=== PATIENT | female | born 1980 | race Caucasian/White ===

== ENCOUNTER 2016-11-09 17:43 | Emergency (ER) | payer MEDICAID, OTHER ==
[~2016-11-09] VITALS: Ht 172.7 cm; Wt 130.0 kg
[2016-11-09 17:45] VITALS: BP 177/110; PULSE 106; RESP 16; TEMP 97.9; O2SAT 99
[2016-11-09] MEDS ORDERED: methylPREDNISolone SOD SUCC 125 MG/2 ML VIAL IV PUSH ONE (18:30)
[2016-11-09] MEDS ORDERED: diphenhydrAMINE HCL 50 MG/ML VIAL IV PUSH ONE (18:30)
[2016-11-09 19:08] LABS: AUTOMATED NEUTROPHIL # 3.6 TH/MM3 (1.8-7.7); BASOPHIL % 0.8 % (0.0-2.0); EOSINOPHIL # 0.2 TH/MM3 (0-0.4); EOSINOPHIL % 2.6 % (0.0-4.0); HEMATOCRIT 40.3 % (35.0-46.0); HEMO FLAGS DIFF FINAL; LYMPH % 30.2 % (9.0-44.0); LYMPHOCYTE # 1.9 TH/MM3 (1.0-4.8); MEAN CORPUSCULAR HEMOGLOBIN 32.4 PG (27.0-34.0); MEAN CORPUSCULAR HGB CONC 34.9 % (32.0-36.0); MONO % 8.6 % (0.0-8.0); NEUT % 57.8 % (16.0-70.0); PLATELET COUNT 257 TH/MM3 (150-450); RED BLOOD COUNT 4.33 MIL/MM3 (4.00-5.30); RED CELL DISTRIBUTION WIDTH 13.8 % (11.6-17.2); WHITE BLOOD COUNT 6.2 TH/MM3 (4.0-11.0)
[2016-11-09 19:09] VITALS: BP 148/78; PULSE 82; RESP 16; O2SAT 99
[2016-11-09 19:33] LABS: ALT (GPT) 52 U/L (10-53)
[2016-11-09 19:35] LABS: ALKALINE PHOSPHATASE 82 U/L (45-117); ANION GAP 8 MEQ/L (5-15); AST (GOT) 47 U/L (15-37); BICARBONATE 28.1 MEQ/L (21.0-32.0); BLOOD UREA NITROGEN 8 MG/DL (7-18); CHLORIDE 104 MEQ/L (98-107); GLOMERULAR FILTRATION RATE 90 ML/MIN (>89); POTASSIUM 3.7 MEQ/L (3.5-5.1); SODIUM (NA) 140 MEQ/L (136-145); TOTAL BILIRUBIN ADULT 0.5 MG/DL (0.2-1.0)
[2016-11-09] MEDS ORDERED: MEDR4PAK PO (20:02)
[2016-11-09] MEDS ORDERED: TRIAM.1%T TOPICAL (20:02)
--- NOTE | 2016-11-09 20:03 | PD ---
HPI Chief Complaint: Skin Problem Time Seen by Provider: 18:22 Travel History International Travel<30 days: No Contact w/Intl Traveler<30days: No Traveled to known affect area: No History of Present Illness HPI Patient is a 36 year old female who comes in complaining lesions to her skin. She says she has been developing these lesions for the past 4 months. This started on her feet, now she has about her knees, elbows, hands. She says she is itchy all over. She says she has tried using cortisone cream and moisturizers, but these have not helped. She has never had this before. She says that they do look like they have a white plaque on them, and then it comes off and is just red. She has not had any fever or chills. She does not know of any autoimmune diseases that run in her family. She has no medical problems that she knows of. [facility] Past Medical History Medical History: Denies Significant Hx ?: Not LMP: 11/03/16 Past Surgical History Surgical History: No Previous Surgery Social History Alcohol Use: Yes (socially) Tobacco Use: No Substance Use: No Allergies-Medications (Allergen,Severity, Reaction): Coded Allergies: No Known Allergies (Unverified , 11/09/16) Reported Meds & Prescriptions Reported Meds & Active Scripts Active No Active Prescriptions or Reported Medications Review of Systems Except as stated in HPI: all other systems reviewed are Neg General / Constitutional: No: Fever, Chills HENT: No: Headaches, Lightheadedness Cardiovascular: No: Chest Pain or Discomfort Respiratory: No: Shortness of Breath Gastrointestinal: No: Nausea, Vomiting Genitourinary: No: Dysuria Skin: Positive Rash, Positive Itching, Positive Lesions Neurologic: No: Weakness, Dizziness Physical Exam Narrative GENERAL: Awake and alert, in no acute distress. SKIN: Focused skin assessment warm/dry. Large areas of dried erythema, with white plaques on both feet, both hands, the knees as well as the extensor surface of the elbows. No warmth or swelling or oozing from the areas. HEAD: Atraumatic. Normocephalic. EYES: Pupils equal and round. No scleral icterus. No injection or drainage. ENT: No nasal bleeding or discharge. Mucous membranes pink and moist. NECK: Trachea midline. No JVD. CARDIOVASCULAR: Regular rate and rhythm. No murmur appreciated. RESPIRATORY: No accessory muscle use. Clear to auscultation. Breath sounds equal bilaterally. GASTROINTESTINAL: Abdomen soft, non-tender, nondistended. MUSCULOSKELETAL: No obvious deformities. No clubbing. No cyanosis. No edema. NEUROLOGICAL: Awake and alert. No obvious cranial nerve deficits. Motor grossly within normal limits. Normal speech. PSYCHIATRIC: Appropriate mood and affect; insight and judgment normal. Data Data Last Documented VS Vital Signs Date Time Temp Pulse Resp B/P Pulse Ox O2 Delivery O2 Flow Rate FiO2 11/09/16 19:10 85 16 11/09/16 19:09 148/78 99 11/09/16 17:45 97.9 Orders Complete Blood Count With Diff (11/09/16 18:29) Comprehensive Metabolic Panel (11/09/16 18:29) Iv Access Insert/Monitor (11/09/16 18:29) Methylprednisolone So Succ Inj (Solumedr (11/09/16 18:30) Diphenhydramine Inj (Benadryl Inj) (11/09/16 18:30) Ed Urine Pregnancytest Poc (11/09/16 18:29) Labs Laboratory Tests Test 11/09/16 18:45 White Blood Count 6.2 TH/MM3 Red Blood Count 4.33 MIL/MM3 Hemoglobin 14.0 GM/DL Hematocrit 40.3 % Mean Corpuscular Volume 93.0 FL Mean Corpuscular Hemoglobin 32.4 PG Mean Corpuscular Hemoglobin 34.9 % Concent Red Cell Distribution Width 13.8 % Platelet Count 257 TH/MM3 Mean Platelet Volume 9.2 FL Neutrophils (%) (Auto) 57.8 % Lymphocytes (%) (Auto) 30.2 % Monocytes (%) (Auto) 8.6 % Eosinophils (%) (Auto) 2.6 % Basophils (%) (Auto) 0.8 % Neutrophils # (Auto) 3.6 TH/MM3 Lymphocytes # (Auto) 1.9 TH/MM3 Monocytes # (Auto) 0.5 TH/MM3 Eosinophils # (Auto) 0.2 TH/MM3 Basophils # (Auto) 0.0 TH/MM3 CBC Comment DIFF FINAL Differential Comment Sodium Level 140 MEQ/L Potassium Level 3.7 MEQ/L Chloride Level 104 MEQ/L Carbon Dioxide Level 28.1 MEQ/L Anion Gap 8 MEQ/L Blood Urea Nitrogen 8 MG/DL Creatinine 0.74 MG/DL Estimat Glomerular Filtration 90 ML/MIN Rate Random Glucose 156 MG/DL Calcium Level 8.5 MG/DL Total Bilirubin 0.5 MG/DL Aspartate Amino Transf 47 U/L (AST/SGOT) Alanine Aminotransferase 52 U/L (ALT/SGPT) Alkaline Phosphatase 82 U/L Total Protein 7.4 GM/DL Albumin 3.4 GM/DL MDM Medical Decision Making Medical Screen Exam Complete: Yes Emergency Medical Condition: Yes Differential Diagnosis Psoriasis versus cellulitis versus eczema Narrative Course Patient is a 36-year-old female comes in with several lesions on her skin that she has had for several months. Exam shows areas of erythema with white plaques. There is no evidence of infection at this time. IV established, labs sent. Labs show no acute abnormalities. Patient given a dose of Solu-Medrol and Benadryl. She says she has started to feel better. I believe this could be psoriasis, but I told her that she really needs to follow-up with dermatology. She'll be discharged with a course of steroids as well as triamcinolone cream to place on the troubled areas for the next few days. Advised to use Cetaphil or Aquaphor all over her skin. Advised to follow -up with a primary care doctor and dermatology as soon as possible. Advised to return to the ED as needed for any worsening symptoms. Diagnosis Primary Impression: Skin rash Patient Instructions: Acute Rash (ED), Eczema (ED), General Instructions, Psoriasis (ED) Additional Instructions: He needs to follow-up with dermatology to diagnose her skin condition. Apply the steroid cream to the trouble areas for the next few days. Take the steroids by mouth starting tomorrow. Take Benadryl as needed for itching. Apply moisturizing cream either Cetaphil or Aquaphor all over. Return to the ED as needed for any worsening symptoms. Scripts Triamcinolone Topical 0.1 % Oint1 Applic TOPICAL BID 7 Days Ref 0 Prov:Huong Jones MD 11/09/16 Methylprednisolone Dosepak (Medrol Dosepak)4 Mg Dspk4 Mg PO DIRECTED #1 DSPK Ref 0 Per Pharmacist direction Prov:Huong Jones MD 11/09/16 Disposition: 01 DISCHARGE HOME Condition: Stable Huong Jones MD Nov 09, 2016 20:02
== END 2016-11-09 21:01 | disposition home or self-care (01) ==
LOC: NEPD 17:43
DX: R21 Rash and other nonspecific skin eruption (principal)
CPT/HCPCS: 80053; 84703; 85025; 96374; 96375; 99284; J1200; J2930

== ENCOUNTER 2017-01-26 17:17 | Emergency (ER) | payer MEDICAID ==
[~2017-01-26] VITALS: Ht 170.2 cm; Wt 125.0 kg
[~2017-01-26 17:17] MED LIST: MEDR4PAK PO; TRIAM.1%T TOPICAL
[2017-01-26 17:19] VITALS: BP 187/113; PULSE 118; RESP 16; TEMP 99.1; O2SAT 100
== END 2017-01-26 18:18 | disposition left against medical advice (07) ==
LOC: NED 17:17
DX: L98.9 Disorder of the skin and subcutaneous tissue, unspecified (principal)
CPT/HCPCS: 99281

== ENCOUNTER 2017-01-28 23:43 | Emergency (ER) | payer MEDICAID ==
[2017-01-28 23:45] VITALS: BP 212/81; PULSE 86; RESP 16; TEMP 98.1; O2SAT 99
[2017-01-29] MEDS ORDERED: BACT800T5 PO (00:08)
[2017-01-29] MEDS ORDERED: DIPR0.053 TOPICAL (00:08)
--- NOTE | 2017-01-29 00:16 | PD ---
HPI Chief Complaint: Skin Problem Time Seen by Provider: 23:57 Travel History International Travel<30 days: No Contact w/Intl Traveler<30days: No Traveled to known affect area: No History of Present Illness HPI 36-year-old white female presents to emergency department with complaints of a chronic dermatitis for the last several months. She states that she has noted a few additional lesions develop on her lower legs which are somewhat different. They're tender to touch. No drainage. She denies any fever chills. PFSH Past Medical History Narrative Medical Eczema versus psoriasis Tetanus Vaccination: < 5 Years ?: Not LMP: 01/28/17 Past Surgical History Surgical History: No Previous Surgery Social History Alcohol Use: Yes (socially) Tobacco Use: No Substance Use: No Allergies-Medications (Allergen,Severity, Reaction): Coded Allergies: No Known Allergies (Unverified , 01/28/17) Reported Meds & Prescriptions Reported Meds & Active Scripts Active Bactrim DS (Sulfamethoxazole-Trimethoprim) 800-160 Mg Tab 2 Tab PO BID Diprolene Topical (Betamethasone Dipropionate Aug Topical) 0.05% Oint 1 Applic TOPICAL DAILY Review of Systems General / Constitutional: No: Fever Eyes: No: Visual changes HENT: No: Headaches Cardiovascular: No: Chest Pain or Discomfort Respiratory: No: Shortness of Breath Gastrointestinal: No: Abdominal Pain Genitourinary: No: Dysuria Musculoskeletal: No: Pain Skin: Positive Rash, Positive Itching, Positive Lesions Neurologic: No: Weakness Psychiatric: No: Depression Endocrine: No: Polydipsia Hematologic/Lymphatic: No: Easy Bruising Physical Exam Narrative GENERAL: This is a well-nourished, well-developed patient, in no apparent distress. SKIN: Patient has large plaques of erythema with scaly flaking. The skeletal does come off and the skin bleeds and bruises freely. These lesions are scattered on the flexor surfaces of her lower legs upper extremities. She also has a few scattered erythematous macular lesions on her lower legs and the area of her hair follicles. No fluctuance or pointing. HEAD: Atraumatic. Normocephalic. EYES: PERRL, EOMI, no discharge or injection. No scleral icterus. EARS: Clear NOSE: Nasal turbinates appear normal. THROAT: Mucosa pink and moist. Airway patent. NECK: Trachea midline. supple, moves head freely. LUNGS: Clear to auscultation. CV: Regular in rhythm. ABDOMEN: Soft nontender. EXT: No clubbing cyanosis or edema. Data Data Last Documented VS Vital Signs Date Time Temp Pulse Resp B/P (MAP) Pulse Ox O2 Delivery O2 Flow Rate FiO2 01/28/17 23:45 98.1 86 16 212/81 (124) 99 Room Air MDM Medical Decision Making Medical Screen Exam Complete: Yes Emergency Medical Condition: Yes Medical Record Reviewed: Yes Differential Diagnosis MDM: High Differential diagnoses: Abscess, folliculitis, cellulitis, lymphangitis, abrasion, contact dermatitis, psoriasis Narrative Course Patient has large plaques of psoriasis but she also has several areas of folliculitis. She is given prescriptions for diproline and Bactrim DS Diagnosis Primary Impression: Folliculitis Additional Impression: Psoriasis Patient Instructions: General Instructions Additional Instructions: Rest. Medications as directed. Increased sun exposure. Follow-up with a ammunition and explosives handler. Return to the ER for emergencies Med/Other Pt SpecificInfo: Prescription(s) given, Wound Care Scripts Sulfamethoxazole-Trimethoprim (Bactrim DS) 800-160 Mg Tab 2 TAB PO BID for Infection, #30 TAB 0 Refills Prov: Sada Lilly DO 01/29/17 Betamethasone Dipropionate Aug Topical (Diprolene Topical) 0.05% Oint 1 APPLIC TOPICAL DAILY for Dermatoses, #30 GM 0 Refills Prov: Sada Lilly DO 01/29/17 Disposition: 01 DISCHARGE HOME Condition: Stable Nish Lan Jan 29, 2017 00:16
== END 2017-01-29 00:30 | disposition home or self-care (01) ==
LOC: NEPD 23:43
DX: L73.9 Follicular disorder, unspecified (principal); L40.9 Psoriasis, unspecified
CPT/HCPCS: 99283